=== PATIENT | female | born 1965 | race Two or more races ===

== ENCOUNTER 2017-08-29 10:42 | Inpatient (IN) | payer OTHER ==
[~2017-08-29] VITALS: Ht 152.4 cm; Wt 78.0 kg
[2017-08-29 10:58] LABS: BASOPHILS % (AUTO) 0.9 % (0.0-2.0); EOSINOPHILS % (AUTO) 0.4 % (0.0-3.0); HEMATOCRIT 48.9 % (37.0-47.0); HEMOGLOBIN 15.7 G/DL (12.0-16.0); LYMPHOCYTES % (AUTO) 17.1 % (20.0-45.0); MEAN CORPUSCULAR VOLUME 82 FL (80-99); MONOCYTES % (AUTO) 5.7 % (1.0-10.0); NEUTROPHILS % (AUTO) 75.9 % (45.0-75.0); PLATELET COUNT 556 K/UL (150-450); RED BLOOD COUNT 5.98 M/UL (4.20-5.40); RED CELL DISTRIBUTION WIDTH 13.5 % (11.6-14.8)
[2017-08-29 10:59] VITALS: BP 140/94
[2017-08-29] MEDS ORDERED: Pantoprazole Inj IVP ONE (11:00)
[2017-08-29] MEDS ORDERED: Morphine Sulfate 4mg/ml Inj IVP ONE (11:00)
[2017-08-29 11:11] LABS: ANION GAP 15 mmol/L (5-15); BLOOD UREA NITROGEN 13 mg/dL (7-18); CALCIUM 10.5 MG/DL (8.5-10.1); CARBON DIOXIDE 25 MMOL/L (21-32); CHLORIDE 93 MMOL/L (98-107); CREATININE 1.2 MG/DL (0.55-1.30); POTASSIUM 4.1 MMOL/L (3.5-5.1); SODIUM 133 MMOL/L (136-145)
[2017-08-29 11:15] LABS: ALANINE AMINOTRANSFERASE 76 U/L (12-78); ALBUMIN 4.2 G/DL (3.4-5.0); ALBUMIN/GLOBULIN RATIO 0.7 (1.0-2.7); ALKALINE PHOSPHATASE 150 U/L (46-116); ASPARTATE AMINO TRANSFERASE 38 U/L (15-37); BILIRUBIN,TOTAL 0.9 MG/DL (0.2-1.0)
[2017-08-29 12:00] LABS: APPEARANCE,URINE CLEAR; BILIRUBIN, URINE 1+ (NEGATIVE); GLUCOSE, URINE (UA) NEGATIVE (NEGATIVE); KETONES,URINE 4+ (NEGATIVE); LEUKOCYTE ESTERASE ,URINE 1+ (NEGATIVE); NITRITE,URINE NEGATIVE (NEGATIVE); PH,URINE 6 (4.5-8.0); PROTEIN,URINE 2+ (NEGATIVE); UROBILINOGEN,URINE 1 MG/DL (0.0-1.0)
--- NOTE | 2017-08-29 12:10 | Diagnostic Imaging Report ---
EXAM: CT Abdomen and Pelvis Without Intravenous Contrast CLINICAL HISTORY: ABD PAIN TECHNIQUE: Axial computed tomography images of the abdomen and pelvis without intravenous contrast. CTDI is 16.29 mGy and DLP is 844 mGy-cm. One or more of the following dose reduction techniques were used: automated exposure control, adjustment of the mA and/or kV according to patient size, use of iterative reconstruction technique. COMPARISON: No relevant prior studies available. FINDINGS: Lung bases: Subsegmental atelectasis medially in the left lung base. ABDOMEN: Liver: Unremarkable. Gallbladder and bile ducts: Cholelithiasis. No gallbladder wall thickening or ductal dilatation. Pancreas: Unremarkable. No ductal dilation. Spleen: Unremarkable. No splenomegaly. Adrenals: Unremarkable. No mass. Kidneys and ureters: Status post left nephrectomy. Mild soft tissue and fluid attenuation in the nephrectomy bed. 2.5 x 1.9 cm soft tissue density nodule superior to the nephrectomy bed likely represents a left adrenal nodule with internal density of 28 Hounsfield units. Stomach and bowel: Small bowel obstruction with focal transition point at a spigelian hernia in the left lateral abdominal wall, at height of the umbilicus. Hernia neck measures 3.1 x 2.3 cm. Maximum diameter small bowel loops at 3.4 cm. No evidence of strangulation or bowel necrosis. No intraperitoneal free air or free fluid. Distal small bowel loops are decompressed. Unremarkable appearance of the colon. No mucosal thickening. PELVIS: Appendix: The appendix appears unremarkable. Bladder: Unremarkable. No stones. Reproductive: Unremarkable as visualized. ABDOMEN and PELVIS: Intraperitoneal space: Unremarkable. No free air. No significant fluid collection. Retroperitoneal space: Surgical clips throughout the left retroperitoneum suggesting prior left ureterectomy and possibly lymphadenectomy. Bones/joints: No acute fracture. No dislocation. Soft tissues: See above. Vasculature: Unremarkable. No abdominal aortic aneurysm. Lymph nodes: Unremarkable. No enlarged lymph nodes. IMPRESSION: 1. Small bowel obstruction with focal transition point at a spigelian hernia in the left lateral abdominal wall, at the height of the umbilicus. Hernia neck measures 3.1 x 2.3 cm. Maximum diameter small bowel loops at 3.4 cm. No evidence of strangulation or bowel necrosis. No intraperitoneal free air or free fluid. 2. Status post left nephrectomy. Mild soft tissue and fluid attenuation in the nephrectomy bed. 3. 2.5 x 1.9 cm soft tissue density nodule superior to the nephrectomy bed likely represents a left adrenal nodule with internal density of 28 Hounsfield units. This is too dense to classify as a benign adenoma and may represent a fat poor adenoma versus other primary or metastatic mass. 4. Cholelithiasis. No gallbladder wall thickening or ductal dilatation. 5. Surgical clips throughout the left retroperitoneum suggesting prior left ureterectomy and possibly lymphadenectomy.
[2017-08-29 12:23] LABS: COLOR,URINE YELLOW
[2017-08-29 13:37] VITALS: BP 128/80
--- NOTE | 2017-08-29 13:46 | Emergency Room Report ---
History of Present Illness General Chief Complaint: Abdominal Pain Source: Patient, EMS Present Illness HPI Patient is a 51 or female presented after increased bowel pain. Patient gradual onset of symptoms. The patient reported not having a bowel movement for approximately 5 days. Patient had recent left nephrectomy for renal cell carcinoma at [facility]. The patient reported having continued pain after surgery. She denies any fever or passing gas. She Allergies: Coded Allergies: No Known Allergies (Unverified , 08/29/17) Patient History Past Medical History: see triage record Last Menstrual Period: na Now: No Reviewed Nursing Documentation: PMH: Agreed; PSxH: Agreed Nursing Documentation-PMH Past Medical History: No History, Except For Hx Cancer: Yes - left kidney s/p nephrectomy Review of Systems All Other Systems: negative except mentioned in HPI Physical Exam Vital Signs Date Time Temp Pulse Resp B/P (MAP) Pulse Ox O2 Delivery O2 Flow Rate FiO2 08/29/17 10:34 98.1 88 18 134/90 98 Room Air 98.1 Sp02 EP Interpretation: reviewed, normal General Appearance: normal inspection, well appearing, no apparent distress, alert, GCS 15 Head: atraumatic ENT: normal ENT inspection, hearing grossly normal, normal voice Neck: normal inspection, full range of motion, supple, no bony tend Respiratory: normal inspection, lungs clear, normal breath sounds, no respiratory distress, no retraction, no wheezing Cardiovascular #1: regular rate, rhythm, no edema Gastrointestinal: normal inspection, normal bowel sounds, non tender, soft, no guarding, no hernia Genitourinary: no CVA tenderness Musculoskeletal: normal inspection, back normal, normal range of motion Neurologic: normal inspection, alert, oriented x3, responsive, 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 Differential diagnoses included ischemic bowel, appendicitis, perforated viscus, abdominal aortic aneurysm, inferior myocardial infarction, viral gastroenteritis Because of complexity of patient's case laboratory testing and imaging studies were ordered.The CT abdomen pelvis read by radiology showed the bowel obstruction with lead point in the left side of the abdomen.NG tube was placed. Patient was seen by surgeon hernia was manually reduced. Patient had ng tube placed. Patient stated she felt somewhat better. Patients insurance company was unable to arrange a timely transfer and patient will be admitted for further management of bowel obstruction. Labs Test 08/29/17 10:45 08/29/17 11:35 White Blood Count 11.0 K/UL (4.8-10.8) Red Blood Count 5.98 M/UL (4.20-5.40) Hemoglobin 15.7 G/DL (12.0-16.0) Hematocrit 48.9 % (37.0-47.0) Mean Corpuscular Volume 82 FL (80-99) Mean Corpuscular Hemoglobin 26.2 PG (27.0-31.0) Mean Corpuscular Hemoglobin Concent 32.0 G/DL (32.0-36.0) Red Cell Distribution Width 13.5 % (11.6-14.8) Platelet Count 556 K/UL (150-450) Mean Platelet Volume 6.3 FL (6.5-10.1) Neutrophils (%) (Auto) 75.9 % (45.0-75.0) Lymphocytes (%) (Auto) 17.1 % (20.0-45.0) Monocytes (%) (Auto) 5.7 % (1.0-10.0) Eosinophils (%) (Auto) 0.4 % (0.0-3.0) Basophils (%) (Auto) 0.9 % (0.0-2.0) Prothrombin Time 10.0 SEC (9.30-11.50) Prothromb Time International Ratio 1.0 (0.9-1.1) Activated Partial Thromboplast Time 26 SEC (23-33) Sodium Level 133 MMOL/L (136-145) Potassium Level 4.1 MMOL/L (3.5-5.1) Chloride Level 93 MMOL/L (98-107) Carbon Dioxide Level 25 MMOL/L (21-32) Anion Gap 15 mmol/L (5-15) Blood Urea Nitrogen 13 mg/dL (7-18) Creatinine 1.2 MG/DL (0.55-1.30) Estimat Glomerular Filtration Rate 47.8 mL/min (>60) Glucose Level 161 MG/DL (74-106) Calcium Level 10.5 MG/DL (8.5-10.1) Total Bilirubin 0.9 MG/DL (0.2-1.0) Aspartate Amino Transf (AST/SGOT) 38 U/L (15-37) Alanine Aminotransferase (ALT/SGPT) 76 U/L (12-78) Alkaline Phosphatase 150 U/L (46-116) Troponin I 0.000 ng/mL (0.000-0.056) Total Protein 10.5 G/DL (6.4-8.2) Albumin 4.2 G/DL (3.4-5.0) Globulin 6.3 g/dL Albumin/Globulin Ratio 0.7 (1.0-2.7) Lipase 347 U/L (73-393) Urine Color Yellow Urine Appearance Clear Urine pH 6 (4.5-8.0) Urine Specific [place] 1.025 (1.005-1.035) Urine Protein 2+ (NEGATIVE) Urine Glucose (UA) Negative (NEGATIVE) Urine Ketones 4+ (NEGATIVE) Urine Occult Blood 2+ (NEGATIVE) Urine Nitrite Negative (NEGATIVE) Urine Bilirubin 1+ (NEGATIVE) Urine Ictotest Negative Urine Urobilinogen 1 MG/DL (0.0-1.0) Urine Leukocyte Esterase 1+ (NEGATIVE) Urine RBC 2-4 /HPF (0 - 2) Urine WBC 2-4 /HPF (0 - 2) Urine Squamous Epithelial Cells Many /LPF (NONE/OCC) Urine Bacteria Few /HPF (NONE) Last Vital Signs Date Time Temp Pulse Resp B/P (MAP) Pulse Ox O2 Delivery O2 Flow Rate FiO2 08/29/17 13:37 98.1 99 18 128/80 96 Room Air 98.1 Status: unchanged Disposition: ADMITTED INPATIENT Condition: Serious Referrals: NON PHYSICIAN (PCP) Phil Gonzalez MD Aug 29, 2017 13:46
[2017-08-29] MEDS ORDERED: Lidocaine 2% Visc 15ml soln ORAL ONE (17:00)
[2017-08-29] MEDS ORDERED: DOCUSATE SODIU100 MG ORAL (17:11)
[2017-08-29] MEDS ORDERED: ACETAMINOPHEN-1 EAC1 ORAL (17:11)
[2017-08-29] MEDS ORDERED: MIRALAX17 G2 ORAL (17:11)
[2017-08-29 17:29] VITALS: BP 122/75
[2017-08-29 18:48] VITALS: BP 131/81
[2017-08-29 20:00] VITALS: BP 128/81
[2017-08-29] MEDS: Piperacillin/Tazobactam 3.375 GM in D5W 110 ML IVPB SCH (20:21)
[2017-08-29] MEDS: D5NS 1,000 ML IV SCH (20:21)
--- NOTE | 2017-08-29 20:41 | Consultation ---
History of Present Illness General Date patient seen: Aug 29, 2017 Chief Complaint: Abdominal Pain Reason for Consultation: sbo Present Illness HPI 51F recently had left nephrectomy for renal cell carcinoma at [facility] 1-2weeks ago and was discharged home. During recover at home noted she has not had BM for 5 days and had increasing abdominal discomfort. Came to ED today for evaluation. States cramping abdominal discomfort /10 with associated nausea and emesis. No BM in 5 days. Some flatus. In ED CT scan performed and identified a abdominal wall incisional/spigelian hernia at site of recent surgical incision on the left lateral abdominal wall. Transition point with dilated proximal loops. Surgery called to evaluate. patient seen, chart reviewed, patient examined. Allergies: Coded Allergies: No Known Allergies (Unverified , 08/29/17) Medication History Scheduled Docusate Sodium* (Docusate Sodium*), 100 MG ORAL TWICE A DAY, (Reported) Polyethylene Glycol 3350* (Miralax*), 17 GM ORAL DAILY, (Reported) Scheduled PRN Acetaminophen With Codeine (T#3) (Tylenol #3 Tab*), 1 TAB ORAL Q4H PRN for For Pain, (Reported) Patient History History Provided By: Patient, Family Member, Medical Record, PMD Healthcare decision maker Resuscitation status Full Code Advanced Directive on File No Past Medical/Surgical History Past Medical/Surgical History: (1) Hernia (2) Small bowel obstruction (3) Renal cell carcinoma Review of Systems All Other Systems: negative except mentioned in HPI Physical Exam General Appearance: no apparent distress Lines, tubes and drains: peripheral HEENT: normocephalic, mucous membranes moist Neck: normal inspection Respiratory/Chest: lungs clear, normal breath sounds, no respiratory distress, no accessory muscle use Cardiovascular/Chest: normal peripheral pulses Abdomen: non tender, soft, no organomegaly, no mass, abnormal bowel sounds, distended, hernia, other - infraumbilical surgical incision with owen, midline surgical incision with owen, left lateral abdominal wall surgical incision with owen Extremities: non-tender, normal inspection, no calf tenderness Skin Exam: normal pigmentation Neurologic: alert, oriented x 3, responsive Last 24 Hour Vital Signs Date Time Temp Pulse Resp B/P (MAP) Pulse Ox O2 Delivery O2 Flow Rate FiO2 08/29/17 18:48 98.1 20 131/81 97 Room Air 98.1 08/29/17 18:20 99.0 92 18 122/75 97 Room Air 99.0 08/29/17 17:29 99.0 92 18 122/75 97 Room Air 99.0 08/29/17 13:37 98.1 99 18 128/80 96 Room Air 98.1 08/29/17 10:59 98.1 08/29/17 10:59 86 21 140/94 96 Room Air 08/29/17 10:34 98.1 88 18 134/90 98 Room Air 98.1 Laboratory Tests Test 08/29/17 10:45 08/29/17 11:35 White Blood Count 11.0 K/UL (4.8-10.8) H Red Blood Count 5.98 M/UL (4.20-5.40) H Hemoglobin 15.7 G/DL (12.0-16.0) Hematocrit 48.9 % (37.0-47.0) H Mean Corpuscular Volume 82 FL (80-99) Mean Corpuscular Hemoglobin 26.2 PG (27.0-31.0) L Mean Corpuscular Hemoglobin Concent 32.0 G/DL (32.0-36.0) Red Cell Distribution Width 13.5 % (11.6-14.8) Platelet Count 556 K/UL (150-450) H Mean Platelet Volume 6.3 FL (6.5-10.1) L Neutrophils (%) (Auto) 75.9 % (45.0-75.0) H Lymphocytes (%) (Auto) 17.1 % (20.0-45.0) L Monocytes (%) (Auto) 5.7 % (1.0-10.0) Eosinophils (%) (Auto) 0.4 % (0.0-3.0) Basophils (%) (Auto) 0.9 % (0.0-2.0) Prothrombin Time 10.0 SEC (9.30-11.50) Prothromb Time International Ratio 1.0 (0.9-1.1) Activated Partial Thromboplast Time 26 SEC (23-33) Sodium Level 133 MMOL/L (136-145) L Potassium Level 4.1 MMOL/L (3.5-5.1) Chloride Level 93 MMOL/L (98-107) L Carbon Dioxide Level 25 MMOL/L (21-32) Anion Gap 15 mmol/L (5-15) Blood Urea Nitrogen 13 mg/dL (7-18) Creatinine 1.2 MG/DL (0.55-1.30) Estimat Glomerular Filtration Rate 47.8 mL/min (>60) Glucose Level 161 MG/DL (74-106) H Calcium Level 10.5 MG/DL (8.5-10.1) H Total Bilirubin 0.9 MG/DL (0.2-1.0) Aspartate Amino Transf (AST/SGOT) 38 U/L (15-37) H Alanine Aminotransferase (ALT/SGPT) 76 U/L (12-78) Alkaline Phosphatase 150 U/L (46-116) H Troponin I 0.000 ng/mL (0.000-0.056) Total Protein 10.5 G/DL (6.4-8.2) H Albumin 4.2 G/DL (3.4-5.0) Globulin 6.3 g/dL Albumin/Globulin Ratio 0.7 (1.0-2.7) L Lipase 347 U/L (73-393) Urine Color Yellow Urine Appearance Clear Urine pH 6 (4.5-8.0) Urine Specific [place] 1.025 (1.005-1.035) Urine Protein 2+ (NEGATIVE) H Urine Glucose (UA) Negative (NEGATIVE) Urine Ketones 4+ (NEGATIVE) H Urine Occult Blood 2+ (NEGATIVE) H Urine Nitrite Negative (NEGATIVE) Urine Bilirubin 1+ (NEGATIVE) H Urine Ictotest Negative Urine Urobilinogen 1 MG/DL (0.0-1.0) H Urine Leukocyte Esterase 1+ (NEGATIVE) H Urine RBC 2-4 /HPF (0 - 2) H Urine WBC 2-4 /HPF (0 - 2) Urine Squamous Epithelial Cells Many /LPF (NONE/OCC) H Urine Bacteria Few /HPF (NONE) Height (Feet): 5 Height (Inches): 0.00 Weight (Pounds): 170 Medications Current Medications Medications (Trade) Dose Ordered Sig/Stefanie Route PRN Reason Start Time Stop Time Status Last Admin Dose Admin Dextrose/Sodium Chloride 1,000 ml @ 100 mls/hr Q10H IV 08/29/17 19:00 09/28/17 18:59 08/29/17 20:21 Ondansetron HCl (Zofran) 4 mg Q4H PRN IVP Nausea & Vomiting 08/29/17 19:00 09/28/17 18:59 Piperacillin Sod/ Tazobactam Sod 3.375 gm/Dextrose 110 ml @ 27.5 mls/hr EVERY 8 HOURS IVPB 08/29/17 20:00 09/05/17 19:59 08/29/17 20:21 Sodium Chloride 1,000 ml @ 100 mls/hr Q10H ONCE IV 08/29/17 10:43 08/29/17 20:42 08/29/17 11:20 Assessment/Plan Problem List: (1) Small bowel obstruction Assessment & Plan: 51F with SBO secondary to incisional spigelian hernia. afebrile, HD stable, leukocytosis 11k, labs reviewed, CT as above. Exam with discomfort but no tenderness. significant adipose tissue noted so hard to identified if hernia reduced after attempt at bedside. -NPO -IV fluids -NG tube decompression -Resuscitation. -will re-evaluate tomorrow AM. may need surgery to reduce hernia contents and repair. will follow with recs thank you for this consultation. ICD Codes: K56.609 - Unspecified intestinal obstruction, unspecified as to partial versus complete obstruction SNOMED: 125411509, 59841545 (2) Hernia Assessment & Plan: left incisional spigelian hernia with bowel contents. attempted reduction at bedside. unfortunately difficult to tell if fully reduced given body habitus. will monitor clinically as repeating a CT is be clinical benefit and excess radiation. if clinically not improved after decompression and resuscitation tomorrow will need to take to OR. ICD Codes: K46.9 - Unspecified abdominal hernia without obstruction or gangrene SNOMED: 06470112, 11250638 Status: stable GuyMazin kingston Aug 29, 2017 20:41
[2017-08-29] MEDS ORDERED: Morphine Sulfate 4mg/ml Inj IVP PRN (20:45)
[2017-08-30] VITALS (7 sets, daily range): BP systolic 117–131; BP diastolic 69–93
--- NOTE | 2017-08-30 00:15 | History and Physical Report ---
DATE OF ADMISSION: 08/29/2017 CHIEF COMPLAINT: Small bowel obstruction. HISTORY OF PRESENT ILLNESS: The patient is a 51-year-old female who weeks ago underwent a nephrectomy for renal cell carcinoma. She did well postoperatively and was discharged home in stable condition. She was noted to have some mild nausea and had a few episodes of vomiting prior to discharge. On her discharge, she states that she was tolerating food and she was having small bowel movements. She had worsening abdominal pain, nausea, vomiting, and presented to the emergency room. There, a CT scan of the abdomen showed small-bowel obstruction with focal transition point of hernia in the left lateral abdominal wall. She has been evaluated by surgery and this has been reduced, but she is now admitted for further evaluation and care. She currently has NG-tube in place. PAST MEDICAL HISTORY: As above. PAST SURGICAL HISTORY: As above. Two sections. CURRENT MEDICATIONS: Reconciled and reviewed. ALLERGIES: None. FAMILY HISTORY: None. SOCIAL HISTORY: Negative for tobacco, ethanol, or drugs. REVIEW OF SYSTEMS: Negative except for abdominal pain, nausea, and vomiting. PHYSICAL EXAMINATION: VITAL SIGNS: Temperature 99, pulse 92, respirations 18, blood pressure 122/75. GENERAL: The patient is well developed, in no apparent distress. HEART: Regular rate and rhythm. LUNGS: Clear. ABDOMEN: Soft, nontender, nondistended with normoactive bowel sounds. EXTREMITIES: No clubbing, cyanosis, or edema. LABORATORY DATA: White count 11, hemoglobin 13, hematocrit 48, platelets 556,000. Coags are normal. Sodium 133, potassium 4.1, chloride 93, bicarbonate 25, BUN , and creatinine 1.2. ASSESSMENT: This is a female admitted with complaints of small-bowel obstruction secondary to hernia, now reduced. PROBLEM LIST: 1. Bowel obstruction. 2. Hernia, reduced. 3. History of recent nephrectomy. PLAN: Continue NG tube. Surgery consultation. IV fluids. Antiemetics. Empiric antibiotic therapy. Monitor laboratories. Discharge planning once cleared by surgery. José Miguel Cooper M.D. DR: Danial JOB#: [id number] CC:
[2017-08-30] MEDS: Piperacillin/Tazobactam 3.375 GM in D5W 110 ML IVPB SCH ×3 (04:30→21:32)
[2017-08-30] MEDS: D5NS 1,000 ML IV SCH ×2 (04:30→15:02)
[2017-08-30 06:48] LABS: BASOPHILS % (AUTO) 0.7 % (0.0-2.0); EOSINOPHILS % (AUTO) 0.2 % (0.0-3.0); HEMATOCRIT 39.6 % (37.0-47.0); HEMOGLOBIN 12.8 G/DL (12.0-16.0); LYMPHOCYTES % (AUTO) 16.5 % (20.0-45.0); MEAN CORPUSCULAR VOLUME 82 FL (80-99); MONOCYTES % (AUTO) 8.6 % (1.0-10.0); PLATELET COUNT 489 K/UL (150-450); RED BLOOD COUNT 4.85 M/UL (4.20-5.40); RED CELL DISTRIBUTION WIDTH 13.7 % (11.6-14.8); WHITE BLOOD COUNT 9.4 K/UL (4.8-10.8)
[2017-08-30 07:12] LABS: ALANINE AMINOTRANSFERASE 58 U/L (12-78); ALBUMIN 3.1 G/DL (3.4-5.0); ALBUMIN/GLOBULIN RATIO 0.6 (1.0-2.7); ALKALINE PHOSPHATASE 111 U/L (46-116); ANION GAP 10 mmol/L (5-15); ASPARTATE AMINO TRANSFERASE 27 U/L (15-37); BILIRUBIN,TOTAL 0.6 MG/DL (0.2-1.0); BLOOD UREA NITROGEN 14 mg/dL (7-18); CARBON DIOXIDE 25 MMOL/L (21-32); CHLORIDE 99 MMOL/L (98-107); CREATININE 1.2 MG/DL (0.55-1.30); POTASSIUM 4.3 MMOL/L (3.5-5.1); SODIUM 134 MMOL/L (136-145)
[2017-08-30] MEDS: Pantoprazole Inj IVP SCH (08:18)
--- NOTE | 2017-08-30 08:30 | General Progress Note ---
Assessment/Plan Problem List: (1) Renal cell carcinoma ICD Codes: C64.9 - Malignant neoplasm of unspecified kidney, except renal pelvis SNOMED: 672412346, 54472203 (2) Small bowel obstruction ICD Codes: K56.609 - Unspecified intestinal obstruction, unspecified as to partial versus complete obstruction SNOMED: 721149560, 91506912 Assessment/Plan improving ivf pos when cleared by surgery Subjective ROS Limited/Unobtainable: No Constitutional: Reports: malaise, weakness HEENT: Reports: no symptoms Cardiovascular: Reports: no symptoms Respiratory: Reports: no symptoms Gastrointestinal/Abdominal: Reports: no symptoms Genitourinary: Reports: no symptoms Neurologic/Psychiatric: Reports: no symptoms Endocrine: Reports: no symptoms Hematologic/Lymphatic: Reports: no symptoms Allergies: Coded Allergies: No Known Allergies (Unverified , 08/29/17) All Systems: reviewed and negative except above Subjective no abd pain. had bowel movement. no pain. Objective Last 24 Hour Vital Signs Date Time Temp Pulse Resp B/P (MAP) Pulse Ox O2 Delivery O2 Flow Rate FiO2 08/30/17 04:19 98.2 86 18 120/75 96 Room Air 98.2 08/30/17 00:21 98.4 99 19 131/93 100 Room Air 98.4 08/29/17 20:00 98.6 93 19 128/81 96 Room Air 98.6 08/29/17 18:48 98.1 20 131/81 97 Room Air 98.1 08/29/17 18:20 99.0 92 18 122/75 97 Room Air 99.0 08/29/17 17:29 99.0 92 18 122/75 97 Room Air 99.0 08/29/17 13:37 98.1 99 18 128/80 96 Room Air 98.1 08/29/17 10:59 98.1 08/29/17 10:59 86 21 140/94 96 Room Air 08/29/17 10:34 98.1 88 18 134/90 98 Room Air 98.1 Intake and Output 08/29/17 08/30/17 19:00 07:00 Intake Total 0 ml 565.0 ml Balance 0 ml 565.0 ml Intake Oral 0 ml IV Total 565.0 ml # Voids 2 Laboratory Tests 08/29/17 10:45: White Blood Count 11.0H, Red Blood Count 5.98H, Hemoglobin 15.7, Hematocrit 48.9H, Mean Corpuscular Volume 82, Mean Corpuscular Hemoglobin 26.2L, Mean Corpuscular Hemoglobin Concent 32.0, Red Cell Distribution Width 13.5, Platelet Count 556H, Mean Platelet Volume 6.3L, Neutrophils (%) (Auto) 75.9H, Lymphocytes (%) (Auto) 17.1L, Monocytes (%) (Auto) 5.7, Eosinophils (%) (Auto) 0.4, Basophils (%) (Auto) 0.9, Prothrombin Time 10.0, Prothromb Time International Ratio 1.0, Activated Partial Thromboplast Time 26, Sodium Level 133L, Potassium Level 4.1, Chloride Level 93L, Carbon Dioxide Level 25, Anion Gap 15, Blood Urea Nitrogen 13, Creatinine 1.2, Estimat Glomerular Filtration Rate 47.8, Glucose Level 161H, Calcium Level 10.5H, Total Bilirubin 0.9, Aspartate Amino Transf (AST/SGOT) 38H, Alanine Aminotransferase (ALT/SGPT) 76, Alkaline Phosphatase 150H, Troponin I 0.000, Total Protein 10.5H, Albumin 4.2, Globulin 6.3, Albumin/Globulin Ratio 0.7L, Lipase 347 08/29/17 11:35: Urine Color Yellow, Urine Appearance Clear, Urine pH 6, Urine Specific [place] 1.025, Urine Protein 2+H, Urine Glucose (UA) Negative, Urine Ketones 4+H, Urine Occult Blood 2+H, Urine Nitrite Negative, Urine Bilirubin 1+H, Urine Ictotest Negative, Urine Urobilinogen 1H, Urine Leukocyte Esterase 1+H, Urine RBC 2-4H, Urine WBC 2-4, Urine Squamous Epithelial Cells ManyH, Urine Bacteria Few 08/30/17 05:20: White Blood Count 9.4, Red Blood Count 4.85, Hemoglobin 12.8, Hematocrit 39.6, Mean Corpuscular Volume 82, Mean Corpuscular Hemoglobin 26.4L, Mean Corpuscular Hemoglobin Concent 32.4, Red Cell Distribution Width 13.7, Platelet Count 489H, Mean Platelet Volume 6.0L, Neutrophils (%) (Auto) 74.0, Lymphocytes (%) (Auto) 16.5L, Monocytes (%) (Auto) 8.6, Eosinophils (%) (Auto) 0.2, Basophils (%) (Auto ) 0.7, Sodium Level 134L, Potassium Level 4.3, Chloride Level 99, Carbon Dioxide Level 25, Anion Gap 10, Blood Urea Nitrogen 14, Creatinine 1.2, Estimat Glomerular Filtration Rate 47.8, Glucose Level 138H, Calcium Level 9.0, Total Bilirubin 0.6, Aspartate Amino Transf (AST/SGOT) 27, Alanine Aminotransferase ( ALT/SGPT) 58, Alkaline Phosphatase 111, Total Protein 8.0, Albumin 3.1L, Globulin 4.9, Albumin/Globulin Ratio 0.6L Height (Feet): 5 Height (Inches): 0.00 Weight (Pounds): 170 General Appearance: WD/WN Neck: supple Cardiovascular: regular rhythm Respiratory/Chest: lungs clear Abdomen: normal bowel sounds, non tender, soft José Miguel Cooper MD Aug 30, 2017 08:30
--- NOTE | 2017-08-30 12:03 | Diagnostic Imaging Report ---
Indication: Status post nasogastric tube placement Technique: Supine view of the abdomen Comparison: none Findings: There are midline and bilateral lower quadrant skin owen. Surgical clips are seen in the abdominal midline. There are mildly dilated gas-filled small bowel loops in the right upper quadrant. There is a nasogastric tube, tip which projects at the level gastroesophageal junction. Impression: Nasogastric tube tip is at the gastroesophageal junction, needs to be advanced Postsurgical changes, as described
--- NOTE | 2017-08-30 15:32 | General Surgery Progress Note ---
General Surgery-Progress Note Subjective Symptoms: improved, BM Additional Comments feels better. had flatus and BM this AM at 5AM. no n/v/f/c. abd pain improved. Objective Last 24 Hour Vital Signs Date Time Temp Pulse Resp B/P (MAP) Pulse Ox O2 Delivery O2 Flow Rate FiO2 08/30/17 12:00 98.0 86 19 128/80 98 98.0 08/30/17 08:00 98.1 86 20 124/75 97 Room Air 98.1 08/30/17 04:19 98.2 86 18 120/75 96 Room Air 98.2 08/30/17 00:21 98.4 99 19 131/93 100 Room Air 98.4 08/29/17 20:00 98.6 93 19 128/81 96 Room Air 98.6 08/29/17 18:48 98.1 20 131/81 97 Room Air 98.1 08/29/17 18:20 99.0 92 18 122/75 97 Room Air 99.0 08/29/17 17:29 99.0 92 18 122/75 97 Room Air 99.0 I&O Intake and Output 08/29/17 08/30/17 19:00 07:00 Intake Total 0 ml 565.0 ml Balance 0 ml 565.0 ml Intake Oral 0 ml IV Total 565.0 ml # Voids 2 Wound: clean, dry, intact Drains: none Cardiovascular: RSR Respiratory: clear Abdomen: soft, flat, non-tender, present bowel sounds Extremities: no edema, no tenderness, no cyanosis Laboratory Tests Test 08/30/17 05:20 White Blood Count 9.4 K/UL (4.8-10.8) Red Blood Count 4.85 M/UL (4.20-5.40) Hemoglobin 12.8 G/DL (12.0-16.0) Hematocrit 39.6 % (37.0-47.0) Mean Corpuscular Volume 82 FL (80-99) Mean Corpuscular Hemoglobin 26.4 PG (27.0-31.0) L Mean Corpuscular Hemoglobin Concent 32.4 G/DL (32.0-36.0) Red Cell Distribution Width 13.7 % (11.6-14.8) Platelet Count 489 K/UL (150-450) H Mean Platelet Volume 6.0 FL (6.5-10.1) L Neutrophils (%) (Auto) 74.0 % (45.0-75.0) Lymphocytes (%) (Auto) 16.5 % (20.0-45.0) L Monocytes (%) (Auto) 8.6 % (1.0-10.0) Eosinophils (%) (Auto) 0.2 % (0.0-3.0) Basophils (%) (Auto) 0.7 % (0.0-2.0) Sodium Level 134 MMOL/L (136-145) L Potassium Level 4.3 MMOL/L (3.5-5.1) Chloride Level 99 MMOL/L (98-107) Carbon Dioxide Level 25 MMOL/L (21-32) Anion Gap 10 mmol/L (5-15) Blood Urea Nitrogen 14 mg/dL (7-18) Creatinine 1.2 MG/DL (0.55-1.30) Estimat Glomerular Filtration Rate 47.8 mL/min (>60) Glucose Level 138 MG/DL (74-106) H Calcium Level 9.0 MG/DL (8.5-10.1) Total Bilirubin 0.6 MG/DL (0.2-1.0) Aspartate Amino Transf (AST/SGOT) 27 U/L (15-37) Alanine Aminotransferase (ALT/SGPT) 58 U/L (12-78) Alkaline Phosphatase 111 U/L (46-116) Total Protein 8.0 G/DL (6.4-8.2) Albumin 3.1 G/DL (3.4-5.0) L Globulin 4.9 g/dL Albumin/Globulin Ratio 0.6 (1.0-2.7) L Plan Problems: (1) Small bowel obstruction Assessment & Plan: 51F with SBO secondary to incisional spigelian hernia. afebrile, HD stable, leukocytosis 11k, labs reviewed, CT as above. Exam with discomfort but no tenderness. significant adipose tissue noted so hard to identified if hernia reduced after attempt at bedside. Had BM this AM. likely resolved/reduced hernia. -NPO -IV fluids -NG tube decompression -Awaiting results of small bowel gastrograffin study. if no obstruction and hernia reduced can start diet and plan for d/c. thank you for this consultation. (2) Hernia Assessment & Plan: left incisional spigelian hernia with bowel contents. see above. if obstruction resolved and hernia reduced can repair electively as outpatient Mazin Madrigal Aug 30, 2017 15:32
[2017-08-30] MEDS ORDERED: Tubing IV Secondary IV ONE (17:06)
[2017-08-30] MEDS ORDERED: D5NS 1000ml IV ONE (17:06)
[2017-08-31] MEDS: D5NS 1,000 ML IV SCH ×4 (01:00→22:40)
[2017-08-31 03:53] VITALS: BP 118/69
[2017-08-31] MEDS: Piperacillin/Tazobactam 3.375 GM in D5W 110 ML IVPB SCH ×3 (06:51→22:35)
[2017-08-31 08:00] VITALS: BP 126/78
[2017-08-31] MEDS: Pantoprazole Inj IVP SCH (09:24)
--- NOTE | 2017-08-31 10:07 | General Progress Note ---
Assessment/Plan Problem List: (1) Renal cell carcinoma ICD Codes: C64.9 - Malignant neoplasm of unspecified kidney, except renal pelvis SNOMED: 569764129, [id number] (2) Small bowel obstruction ICD Codes: K56.609 - Unspecified intestinal obstruction, unspecified as to partial versus complete obstruction SNOMED: 958400957, [id number] Status: stable Assessment/Plan improving ivf upper gi with sbft pos when cleared by surgery Subjective ROS Limited/Unobtainable: No Constitutional: Reports: malaise, weakness HEENT: Reports: no symptoms Cardiovascular: Reports: no symptoms Respiratory: Reports: no symptoms Gastrointestinal/Abdominal: Reports: no symptoms Genitourinary: Reports: no symptoms Neurologic/Psychiatric: Reports: no symptoms Endocrine: Reports: no symptoms Hematologic/Lymphatic: Reports: no symptoms Allergies: Coded Allergies: No Known Allergies (Unverified , 08/29/17) All Systems: reviewed and negative except above Subjective no abd pain. had bowel movement. no pain. Objective Last 24 Hour Vital Signs Date Time Temp Pulse Resp B/P (MAP) Pulse Ox O2 Delivery O2 Flow Rate FiO2 08/31/17 08:00 97.0 82 20 126/78 82 Room Air 97.0 08/31/17 03:53 99.5 76 20 118/69 94 Room Air 99.5 08/30/17 23:43 98.1 85 20 117/70 95 Room Air 98.1 08/30/17 19:18 98.5 85 20 120/76 99 Room Air 98.5 08/30/17 16:00 98.2 81 20 128/85 95 98.2 08/30/17 12:00 98.0 86 19 128/80 98 98.0 Intake and Output 08/30/17 08/31/17 19:00 07:00 Intake Total 437.5 ml 27.5 ml Output Total 50 ml Balance 387.5 ml 27.5 ml IV Total 437.5 ml 27.5 ml Output Gastric Drainage Total 50 ml # Voids 3 # Bowel Movements 2 Height (Feet): 5 Height (Inches): 0.00 Weight (Pounds): 170 General Appearance: WD/WN, alert Neck: supple Cardiovascular: regular rhythm Respiratory/Chest: lungs clear Abdomen: normal bowel sounds, non tender, soft José Miguel Cooper MD Aug 31, 2017 10:07
[2017-08-31 12:00] VITALS: BP_SYST 120; BP_SYST 129; BP_DIAS 62; BP_DIAS 76
--- NOTE | 2017-08-31 15:03 | General Surgery Progress Note ---
General Surgery-Progress Note Subjective Symptoms: improved, pain absent, tolerating diet, passing flatus, BM Additional Comments doing well. no complaints. normal bowel function. tolerating diet. Objective Last 24 Hour Vital Signs Date Time Temp Pulse Resp B/P (MAP) Pulse Ox O2 Delivery O2 Flow Rate FiO2 08/31/17 12:00 97.3 67 18 120/76 96 Room Air 97.3 08/31/17 08:00 97.0 82 20 126/78 98 Room Air 97.0 08/31/17 03:53 99.5 76 20 118/69 94 Room Air 99.5 08/30/17 23:43 98.1 85 20 117/70 95 Room Air 98.1 08/30/17 19:18 98.5 85 20 120/76 99 Room Air 98.5 08/30/17 16:00 98.2 81 20 128/85 95 98.2 I&O Intake and Output 08/30/17 08/31/17 19:00 07:00 Intake Total 437.5 ml 27.5 ml Output Total 50 ml Balance 387.5 ml 27.5 ml IV Total 437.5 ml 27.5 ml Output Gastric Drainage Total 50 ml # Voids 3 # Bowel Movements 2 Wound: clean, dry, intact Drains: none Cardiovascular: RSR Respiratory: clear Abdomen: soft, flat, non-tender, present bowel sounds Extremities: no edema, no tenderness, no cyanosis Plan Problems: (1) Small bowel obstruction Assessment & Plan: 51F with SBO secondary to incisional spigelian hernia. afebrile, HD stable, leukocytosis 11k, labs reviewed, CT as above. Exam with discomfort but no tenderness. significant adipose tissue noted so hard to identified if hernia reduced after attempt at bedside. Had BM. likely resolved/reduced hernia. bowel series okay -d/c ng tube -diet as tolerated -discharge planning. needs to follow up with surgeon as outpatient MAGDA for staple removal, post op check, and to discuss findings and plans for hernia repair electively now that reduced. (2) Hernia Assessment & Plan: left incisional spigelian hernia with bowel contents. see above. if obstruction resolved and hernia reduced can repair electively as outpatient Mazin Madrigal Aug 31, 2017 15:03
[2017-08-31 16:00] VITALS: BP 118/52
--- NOTE | 2017-08-31 16:08 | Diagnostic Imaging Report ---
Indication: Abdominal pain, small bowel obstruction suspected on recent CT scan Technique: Patient ingested water-soluble contrast. Serial images obtained over the abdomen. Total fluoroscopy time minutes. Total dose area product 107 dGycm2 Total images 19. Comparison: Reference made to CT scan and abdominal radiograph dated 08/29/2017 Findings: [employer] Associate image demonstrates nasogastric tube in the gastric fundus. There are midline skin owen as well as skin owen for the laparoscopy ports. Subsequent images demonstrate somewhat slow but steady filling of small bowel loops. Proximal small bowel loops are somewhat distended, although this is less striking than on the earlier studies. Contrast is seen within the colon at 5 1/2 hours no bowel is seen in the abdominal wall at the location of the hernia demonstrated on prior CT Impression: No definite small bowel obstruction demonstrated on current exam. There is evidence that previously demonstrated spiculated hernia has been successfully reduced Images previously reviewed in person with Dr. Madrigal
[2017-08-31 20:00] VITALS: BP 111/57
[2017-09-01] VITALS: BP_SYST 133; BP_SYST 135; BP_DIAS 69; BP_DIAS 80
[2017-09-01 04:41] VITALS: BP 115/68
[2017-09-01] MEDS: Piperacillin/Tazobactam 3.375 GM in D5W 110 ML IVPB SCH ×2 (06:08→14:00)
[2017-09-01] MEDS: D5NS 1,000 ML IV SCH (06:12)
[2017-09-01 08:00] VITALS: BP 113/61
[2017-09-01] MEDS: Pantoprazole Inj IVP SCH (08:50)
[2017-09-01 12:00] VITALS: BP 123/62
[2017-09-01] MEDS ORDERED: D5NS 1000ml IV ONE (14:39)
--- NOTE | 2017-09-01 16:53 | General Surgery Progress Note ---
General Surgery-Progress Note Subjective Symptoms: improved, pain absent, tolerating diet, passing flatus, BM Objective Last 24 Hour Vital Signs Date Time Temp Pulse Resp B/P (MAP) Pulse Ox O2 Delivery O2 Flow Rate FiO2 09/01/17 12:00 97.6 70 20 123/62 98 Room Air 97.6 09/01/17 08:00 97.0 89 20 113/61 100 Room Air 97.0 09/01/17 04:41 98.2 61 19 115/68 100 Room Air 98.2 09/01/17 00:00 98.0 65 19 135/69 100 Room Air 98.0 08/31/17 20:00 98.3 57 19 111/57 97 Room Air 98.3 I&O Intake and Output 08/31/17 09/01/17 19:00 07:00 Intake Total 160 ml 470 ml Balance 160 ml 470 ml Intake Oral 160 ml 470 ml # Voids 4 4 Wound: clean, dry, intact Drains: none Cardiovascular: RSR Respiratory: clear Abdomen: soft, flat, non-tender, present bowel sounds Extremities: no edema, no tenderness, no cyanosis Plan Problems: (1) Small bowel obstruction Assessment & Plan: 51F with SBO secondary to incisional spigelian hernia. afebrile, HD stable, leukocytosis improved, labs reviewed, CT as above. Exam with discomfort but no tenderness. significant adipose tissue noted so hard to identified if hernia reduced after attempt at bedside. Had BM. likely resolved/reduced hernia. bowel series okay -diet as tolerated -discharge needs to follow up with surgeon as outpatient MAGDA for staple removal, post op check, and to discuss findings and plans for hernia repair electively now that reduced. (2) Hernia Assessment & Plan: Mazin Madrigal Sep 01, 2017 16:53
--- NOTE | 2017-09-02 03:00 | Discharge Summary ---
DATE OF ADMISSION: 08/29/2017 DATE OF DISCHARGE: 09/01/2017 ADMISSION DIAGNOSES: 1. Small bowel obstruction. 2. History of nephrectomy. DISCHARGE DIAGNOSES: 1. Small bowel obstruction. 2. History of nephrectomy. HISTORY AND HOSPITAL COURSE: The patient is a pleasant female, who presented with complaints of nausea, vomiting, and abdominal pain. She was diagnosed with small bowel obstruction. She did have a hernia that was reduced by the surgeon in the emergency room. Her diet was slowly advanced. On discharge, she was tolerating regular diet. She was having normal bowel movements and was pain free. She has been asked to follow up with her surgeon for removal of her owen. DISCHARGE MEDICATIONS: Please see discharge medication list for discharge medications. DIET: Regular diet. ACTIVITY: Ad-ian. José Miguel Cooper M.D. DR: HENOK JOB#: [id number] CC:
== END 2017-09-01 14:40 | disposition home or self-care (01) | DRG 254 ==
LOC: EDBD 10:42 → EMR 11:20 → 4W 15:32 → EDBEDREQ 16:33 → 4W 23:42
DX: K43.0 Incisional hernia with obstruction, without gangrene (principal); Z85.53 Personal history of malignant neoplasm of renal pelvis; Z90.5 Acquired absence of kidney
CPT/HCPCS: 36415; 74018; 74176; 74250; 80053; 81003; 83690; 84484; 85025; 85610; 85730; 87081; 99285; J2405